=== PATIENT | male | born 1955 | race Two or more races ===

== ENCOUNTER 2017-05-10 19:53 | Emergency (ER) | payer MEDICARE, OTHER ==
[~2017-05-10] VITALS: Ht 172.7 cm; Wt 94.3 kg
[~2017-05-10 19:53] MED LIST: *INS REG3 IJ; ALBU8.5H2 INH; AMLO5TAB2 PO; CLOP75TA2 PO; ESOM40CA PO; FLUT1DIS3 IH; INSU3INS6 SQ; METF500T4 PO; NAPR500T6 PO; PIOG45TA PO; ROSU10TA PO; ROSU5TAB PO; SITA100T PO; VALS160T2 PO
--- NOTE | 2017-05-10 20:05 | NUR ---
TO BED 6 A 61 YO MALE BIBSELF W C/O RT CHEST PAIN RADIATES TO BACK S/P FALL DOWN 3-4 STEPS X1 WK AGO, NO HEAD TRAUMA, NO KO, TOOK OXYCONTIN 10MG X AM TODAY. PATIENT IS AAOX4, AMBULATORY WITH STEADY GAIT, NOTED GUARDING ON THE AFFECTED AREA. NAD NOTED. VSS. INITIATED COMFORT MEASURES. AWAITING FOR ER MD DOVER.
--- NOTE | 2017-05-10 20:07 | NUR ---
DR TUTTLE AT BEDSIDE FOR EVAL.
[2017-05-10] MEDS ORDERED: oxyCODONE/APAP (5/325 MG) 1 UDTAB TABLET PO ONE (20:30)
[2017-05-10] MEDS ORDERED: oxyCODONE/APAP (5/325 MG) 1 UDTAB TABLET ONE (20:33)
--- NOTE | 2017-05-10 20:42 | NUR ---
BLOOD SUGAR CHECK AND RECORDED 321MG/DL, DR TUTTLE NOTIFIED. PER PATIENT HE TAKES L[place] 50 UNITS AT HOME.
--- NOTE | 2017-05-10 20:43 | NUR ---
XR AT BEDSIDE.
--- NOTE | 2017-05-10 21:32 | NUR ---
MADE FOLLOW UP WITH RADIOLOGY RE XRAY READING.
--- NOTE | 2017-05-10 21:58 | NUR ---
Patient discharged to home in stable condition. Written and verbal after care instructions given. Patient verbalizes understanding of instruction. Patient is ambulatory with steady gait, Instructed not to drive. no further complaints.
[2017-05-10 21:59] VITALS: BP 148/80
== END 2017-05-10 21:59 | disposition home or self-care (01) ==
LOC: ER 19:54
DX: S22.41XA Multiple fractures of ribs, right side, initial encounter for closed fracture (principal); I10 Essential (primary) hypertension; E11.9 Type 2 diabetes mellitus without complications; F17.200 Nicotine dependence, unspecified, uncomplicated; W10.9XXA Fall (on) (from) unspecified stairs and steps, initial encounter; Y93.89 Activity, other specified; Y92.89 Other specified places as the place of occurrence of the external cause; Y99.8 Other external cause status
CPT/HCPCS: 71100-TC; 82962-TC; A4606; Z7610

== ENCOUNTER 2019-11-02 14:46 | Emergency (ER) | payer MEDICARE, OTHER ==
[~2019-11-02] VITALS: Ht 172.7 cm; Wt 94.3 kg
[~2019-11-02 14:46] MED LIST changes: -ALBU8.5H2 INH; +ALBU8.5H8 INH; -AMLO5TAB2 PO; +AMLO5TAB9 PO; +CLOP75TA15 PO; -CLOP75TA2 PO; +METF-440 PO; -METF500T4 PO; -PIOG45TA PO; +PIOG45TA5 PO; -ROSU10TA PO; +ROSU10TA2 PO
--- NOTE | 2019-11-02 15:15 | NUR ---
PT AAOX4. AMBULATORY WITH STEADY GAIT. [id number], c/o abd pain x 2 hrs, 10 p. PT states he has been constipated x1 day, now vomiting and c/o abd pain. placed on monitor and pulse ox. pt vomited 200mls. No acute distress noted. Pt trying to give urine sample. vss. Awaiting MD for eval.
--- NOTE | 2019-11-02 15:27 | NUR ---
URINE SENT TO LAB
[2019-11-02 15:35] LABS: BILIRUBIN,URINE Negative (NEGATIVE); BLOOD, URINE Small Ery/uL (NEGATIVE); COLOR,URINE Yellow (YELLOW); KETONES,URINE Negative (NEGATIVE); LEUKOCYTE ESTERASE ,URINE Negative (NEGATIVE); NITRITE, URINE Negative (NEGATIVE); PROTEIN,URINE 100 mg/dl (NEGATIVE); UGLUCOSE 500 MG/DL mg/dL (NEGATIVE); UROBILINOGEN,URINE 0.2 EU/dL (0.2)
[2019-11-02 15:42] LABS: APPEARANCE,URINE SLIGHTLY HAZY (CLEAR)
[2019-11-02] MEDS ORDERED: HYDROMORPHONE 1 MG/1 ML DISP.SYRIN ONE ×2 (15:44→17:07)
[2019-11-02] MEDS ORDERED: ONDANSETRON HCL/PF 4 MG/2 ML VIAL ONE (15:45)
[2019-11-02 15:47] LABS: BACTERIA,URINE None seen /HPF (None Seen); SQUAMOUS EPITHELIAL CELL,UR None Seen /HPF (None Seen); WBC,URINE 0-2 /HPF (0-3)
[2019-11-02 15:49] LABS: BASOPHILS % (AUTO) 0.4 % (0.0-2.0); EOSINOPHILS % (AUTO) 1.9 % (0.0-6.0); HEMATOCRIT 53 % (39-51); HEMOGLOBIN 17.7 g/dL (13.5-17.5); LYMPHOCYTES # (AUTO) 1.9 /CMM (0.8-4.8); LYMPHOCYTES % (AUTO) 23.7 % (20.0-44.0); MEAN CORPUSCULAR HGB CONC 34 g/dl (31.0-36.0); MEAN CORPUSCULAR VOLUME 90 fL (80-96); MONOCYTES # (AUTO) 0.8 /CMM (0.1-1.30); MONOCYTES % (AUTO) 10.2 % (2.0-12.0); NEUTROPHILS % (AUTO) 63.8 % (43.0-81.0); PLATELET COUNT (AUTO) 221 /CMM (150-450); RED BLOOD CELL COUNT(AUTO) 5.84 MIL/uL (4.5-6.0); WHITE BLOOD COUNT (AUTO) 7.8 K/uL (4.3-11.0)
[2019-11-02] MEDS ORDERED: ONDANSETRON HCL/PF - ER 4 MG/2 ML VIAL IV ONE (16:00)
[2019-11-02] MEDS ORDERED: HYDROMORPHONE INJ 0.5 MG/0.5 ML SYRINGE IV ONE ×2 (16:00→17:30)
[2019-11-02 16:04] LABS: CALCIUM, SERUM 9.5 mg/dL (8.5-10.1); CREATININE 1.6 mg/dL (0.6-1.3); POTASSIUM 4.4 mmol/L (3.5-5.1)
--- NOTE | 2019-11-02 16:06 | NUR ---
BACK FROM CT, PLACED ON MONITOR AND PULSE OX.
[2019-11-02 16:09] LABS: ALBUMIN 4.3 g/dL (3.4-5.0); BILIRUBIN,DIRECT 0.1 mg/dL (0.0-0.2); BILIRUBIN,TOTAL 0.4 mg/dL (0.2-1.0); TOTAL PROTEIN, SERUM 8.3 g/dL (6.4-8.2)
[2019-11-02] MEDS ORDERED: BISACODYL SUPP (10 MG) 10 MG/SUPP.RECT SUPP.RECT RC ONE ×2 (17:07→17:30)
[2019-11-02] MEDS ORDERED: NA PHOS,M-B/NA PHOS,DI-BA 1 EA ENEMA RC ONE ×2 (17:07→17:30)
--- NOTE | 2019-11-02 17:27 | NUR ---
ambulated to restroom
--- NOTE | 2019-11-02 17:45 | NUR ---
[phone] [facility]
--- NOTE | 2019-11-02 18:29 | NUR ---
PT RESTING COMFORTBALY. VSS.
--- NOTE | 2019-11-02 19:44 | NUR ---
IV removed. Catheter intact and site benign. Pressure and 4x4 applied to site. No bleeding noted.
--- NOTE | 2019-11-02 19:52 | NUR ---
Patient discharged to home in stable condition. Written and verbal after care instructions given. Patient verbalizes understanding of instruction and RX. PT ambulatory with a steady gait.
[2019-11-02 19:53] VITALS: BP 138/82
== END 2019-11-02 19:53 | disposition home or self-care (01) ==
LOC: ER 14:49
DX: N13.2 Hydronephrosis with renal and ureteral calculous obstruction (principal); N28.89 Other specified disorders of kidney and ureter; N43.2 Other hydrocele; K59.00 Constipation, unspecified; R31.9 Hematuria, unspecified; I10 Essential (primary) hypertension; E78.5 Hyperlipidemia, unspecified; E11.9 Type 2 diabetes mellitus without complications; F10.10 Alcohol abuse, uncomplicated; F17.210 Nicotine dependence, cigarettes, uncomplicated; R00.0 Tachycardia, unspecified; Y90.9 Presence of alcohol in blood, level not specified; Z79.4 Long term (current) use of insulin; Z79.899 Other long term (current) drug therapy; Z98.890 Other specified postprocedural states
CPT/HCPCS: 36415; 74176; 80048; 80076; 81001; 83690; 85025; 96374; 96375; 96376; 99284; 99406; J1170 ×2; J2405; 81000-TC